=== PATIENT | female | born 1990 | race African-American/Black ===

== ENCOUNTER 2016-11-30 12:09 | Emergency (ER) | payer MEDICAID, OTHER ==
[~2016-11-30] VITALS: Ht 167.6 cm; Wt 73.0 kg
[2016-11-30] MEDS ORDERED: FERR142T6 PO (12:40)
[2016-11-30] MEDS ORDERED: ACETAMINOPHEN 325MG TABLET PO ONE (17:00)
[2016-11-30 17:21] LABS: EOSINOPHILS % 0.6 % (0.0-5.0); HEMATOCRIT. 35.4 % (36.0-48.0); HEMOGLOBIN. 11.2 g/dL (12.0-16.0); LYMPHOCYTES % 29.4 % (20.0-50.0); MONOCYTES % 11.2 % (2.0-8.0); NEUTROPHILS % 57.8 % (40.0-76.0); PLATELET 297 x1000/uL (130-400); RED BLOOD CELL COUNT 4.32 mill/uL (4.2-5.4); RED CELL DISTRIBUTION WIDTH 17.2 % (11.6-14.6)
[2016-11-30 17:27] LABS: CLARITY URINE CLEAR (CLEAR); COLOR URINE YELLOW (YELLOW); GLUCOSE URINE NEGATIVE (NEGATIVE); KETONES URINE NEGATIVE (NEGATIVE); LEUKOCYTE ESTERASE URINE NEGATIVE (NEGATIVE); NITRITE URINE POSITIVE (NEGATIVE); OCCULT BLOOD URINE NEGATIVE (NEGATIVE); PROTEIN URINE NEGATIVE (NEGATIVE); SPECIFIC GRAVITY URINE 1.015 (1.005-1.030)
[2016-11-30 17:30] LABS: CARBON DIOXIDE 28 mEq/L (21-32); CHLORIDE 105 mEq/L (98-107)
[2016-11-30 17:39] LABS: HCG SCREEN NEGATIVE
[2016-11-30] MEDS ORDERED: TRAMADOL 50MG TABLET PO ONE (18:00)
[2016-11-30 18:11] VITALS: BP 128/83
== END 2016-11-30 19:06 | disposition home or self-care (01) ==
LOC: ER 12:09
DX: K85.90 Acute pancreatitis without necrosis or infection, unspecified (principal); N39.0 Urinary tract infection, site not specified; D64.9 Anemia, unspecified; F12.10 Cannabis abuse, uncomplicated; Z98.890 Other specified postprocedural states
CPT/HCPCS: 36415; 76700; 80048; 81001; 83690; 84703; 85025; 99285

== ENCOUNTER 2017-04-28 19:10 | Emergency (ER) | payer MEDICAID ==
[~2017-04-28] VITALS: Ht 167.6 cm; Wt 75.0 kg
[~2017-04-28 19:10] MED LIST: FERR142T6 PO
[2017-04-28 23:46] VITALS: BP 110/65
[2017-04-29 00:39] LABS: BASOPHILS % 0.7 % (0.0-2.0); EOSINOPHILS % 1.1 % (0.0-5.0); HEMATOCRIT. 30.4 % (36.0-48.0); HEMOGLOBIN. 9.6 g/dL (12.0-16.0); MEAN CORPUSCULAR HEMOGLOBIN 25.6 pg (28.0-32.0); MEAN CORPUSCULAR VOLUME 81.5 fL (81.0-99.0); MEAN PLATELET VOLUME 7.8 fl (7.4-10.4); MONOCYTES % 9.9 % (2.0-8.0); NEUTROPHILS % 44.3 % (40.0-76.0); PLATELET 335 x1000/uL (130-400); RED BLOOD CELL COUNT 3.73 mill/uL (4.2-5.4); RED CELL DISTRIBUTION WIDTH 17.7 % (11.6-14.6)
[2017-04-29 00:44] LABS: CHLORIDE 106 mEq/L (98-107); HCG SCREEN NEGATIVE; INR 1.1; PROTHROMBIN TIME 10.9 sec (9.4-11.6)
[2017-04-29 00:45] LABS: CLARITY URINE CLEAR (CLEAR); COLOR URINE YELLOW (YELLOW); KETONES URINE TRACE (NEGATIVE); LEUKOCYTE ESTERASE URINE NEGATIVE (NEGATIVE); NITRITE URINE POSITIVE (NEGATIVE); OCCULT BLOOD URINE NEGATIVE (NEGATIVE); PROTEIN URINE NEGATIVE (NEGATIVE); SPECIFIC GRAVITY URINE 1.027 (1.005-1.030); UROBILINOGEN URINE 0.2 E.U./dL (0.2-1.0)
== END 2017-04-29 01:45 | disposition left against medical advice (07) ==
LOC: ER 21:26
DX: N39.0 Urinary tract infection, site not specified (principal); D64.9 Anemia, unspecified; F17.210 Nicotine dependence, cigarettes, uncomplicated; I10 Essential (primary) hypertension; Z87.19 Personal history of other diseases of the digestive system
CPT/HCPCS: 36415; 80053; 81001; 83690; 84703; 85025; 85610; 99284

== ENCOUNTER 2018-09-30 10:52 | Emergency (ER) | payer MEDICAID ==
[~2018-09-30] VITALS: Ht 167.6 cm; Wt 83.6 kg
[2018-09-30 11:08] VITALS: BP 135/76
== END 2018-09-30 11:44 | disposition home or self-care (01) ==
LOC: ER 10:52
DX: N61.0 Mastitis without abscess (principal); F12.10 Cannabis abuse, uncomplicated; Z98.890 Other specified postprocedural states
CPT/HCPCS: 99282

== ENCOUNTER 2020-08-09 08:40 | Emergency (ER) | payer MEDICAID ==
[~2020-08-09] VITALS: Ht 167.6 cm; Wt 86.0 kg
[2020-08-09 08:42] VITALS: BP 126/55
[2020-08-09] MEDS ORDERED: IBUPROFEN 600MG TABLET PO ONE (09:00)
[2020-08-09] MEDS ORDERED: DOXYCYCLINE HYCLATE 100MG CAPSULE PO ONE (10:30)
[2020-08-09] MEDS ORDERED: CEFTRIAXONE SODIUM 500 MG/VIAL IM ONE (10:30)
[2020-08-09] MEDS ORDERED: DOXY100C2 MT (10:53)
[2020-08-09] MEDS ORDERED: IBUP-2029 MT (10:53)
[2020-08-09] MEDS ORDERED: LIDOCAINE HCL 1% 20ML VIAL (Pyxis) INJ INFIL ONE (11:15)
[2020-08-11 06:07] LABS: NEISSERIA GONORRHOEAE NAA Negative (Negative)
== END 2020-08-09 11:30 | disposition home or self-care (01) ==
LOC: ER 08:40
DX: S62.626A Displaced fracture of middle phalanx of right little finger, initial encounter for closed fracture (principal); F12.10 Cannabis abuse, uncomplicated; A64 Unspecified sexually transmitted disease; X58.XXXA Exposure to other specified factors, initial encounter; Y93.89 Activity, other specified; Y92.89 Other specified places as the place of occurrence of the external cause; Y99.8 Other external cause status; Z79.899 Other long term (current) drug therapy
CPT/HCPCS: 29130; 73130; 81025; 87491; 87591; 96372; 99284; J0696; J3490; Z7610